=== PATIENT | female | born 1965 | race Caucasian/White ===

== ENCOUNTER → 2017-06-13 07:21 | Outpatient (CLI) | payer MEDICAID ==
[2014-12-18 18:40] VITALS: BMI 38.3
[~2017-06-13 07:21] MED LIST: COZAAR100 MG PO; DOXYCYCLINE HY100 M2 PO; FAMVIR500 MG PO; FERREX 150 PLUS1 CAP PO; FIORICET-COD 51 EACH PO; HYDROCHLOROTHIA25 MG PO; HYDROMET PO; IPRAT-ALBUT 0.5-3 ML UPD; LEVAQUIN500 MG PO; MUCINEX DM ER1 EAC1 PO; PROAIR HFA8.5 GM INH; SINGULAIR10 MG PO; TESSALON PERLE100 MG PO; XANAX0.5 MG PO; ZOLOFT100 MG PO; ZOVIRAX 5% CREAM5 GM TOPICAL
== END ==
LOC: D.MRI 07:21
DX: R93.8 Abnormal findings on diagnostic imaging of other specified body structures (principal); K92.1 Melena; K64.9 Unspecified hemorrhoids

== ENCOUNTER → 2017-12-25 18:13 | Outpatient (CLI) | payer MEDICAID, BC ==
[2014-12-18 18:40] VITALS: BMI 38.3
== END | disposition home or self-care (01) ==
LOC: D.MAMMO 08:15
DX: Z12.31 Encounter for screening mammogram for malignant neoplasm of breast (principal)

== ENCOUNTER → 2019-04-04 11:37 | Outpatient (CLI) | payer BC, MEDICAID ==
[2014-12-18 18:40] VITALS: BMI 38.3
== END | disposition home or self-care (01) ==
LOC: D.US 11:37
PROVIDERS: ATTEND Surgery
DX: I83.90 Asymptomatic varicose veins of unspecified lower extremity (principal)

== ENCOUNTER 2019-05-16 09:30 | Day surgery (SDC) | payer BC, MEDICAID ==
[2019-05-15 13:57] LABS: HEMATOCRIT 40.7 % (36.0-48.0); HEMOGLOBIN 13.4 g/dL (12-16); MCHC 32.9 g/dL (31.0-37.0); MCV 91.1 fL (80.0-100.0); MEAN PLATELET VOLUME 10.3 fL (7.4-10.4); RBC 4.47 10x6/uL (4.00-5.40); WBC 9.6 10x3/uL (4.8-10.8)
[~2019-05-16] VITALS: Ht 170.2 cm; Wt 122.5 kg
[~2019-05-16 09:30] MED LIST changes: +ESTRACE1 MG PO; +PEPCID40 MG PO; +POT CHLORIDE TAB 10M PO; +PROMETRIUM200 MG PO; +SINEQUAN25 MG; +TOPAMAX100 MG PO
[2019-05-16] MEDS ORDERED: STELARA (10:25)
[2019-05-16 10:31] VITALS: BP 107/67; Ht 170.2 cm; Wt 122.5 kg
--- NOTE | 2019-05-16 13:47 | NUR ---
PILLOWS,AND AX ROLLS USED FOR PRONE POSITION DURING 2ND PART OF CASE.
--- NOTE | 2019-05-16 18:20 | NUR ---
PATIENT AMBULATES TO BATHROOM AND VOIDS LARGE AMOUNT IN TOILET, NO NEW DRAINAGE NOTED TO LEG DRESSINGS. PATIENT DRESSING IN PERSONAL CLOTHING. RIGHT HAND PIV DC'D WITH TIP INTACT 1829 DISCHARGED HOME VIA WHEELCHAIR TO PRIVATE VEHICLE WITH DAUGHTER
--- NOTE | 2019-06-12 16:24 | OP ---
PATIENT NAME: AVERY DE LA VEGA MEDICAL RECORD: [id number] :67 LOCATION:[facility] ADMISSION DATE: SURGEON: GEOVANNY SHAH MD DATE OF OPERATION: 05/16/2019 PREOPERATIVE DIAGNOSES: 1. Symptomatic bilateral lower extremity varicosities, extensive. 2. Pathologic venous reflux in the bilateral greater saphenous veins and bilateral short saphenous veins. POSTOPERATIVE DIAGNOSES: 1. Symptomatic bilateral lower extremity varicosities, extensive. 2. Pathologic venous reflux in the bilateral greater saphenous veins and bilateral short saphenous veins. 3. Relatively narrow short saphenous veins, which I did not think would accommodate the radiofrequency catheter. PROCEDURES: 1. VNUS radiofrequency ablation of the bilateral greater saphenous veins. The length treated on the right was 34 cm and the length treated on the left was 40 cm. 2. Foamed sclerotherapy of the bilateral lesser saphenous veins. 3. Avulsion phlebectomies of the bilateral lower extremities times 60. SURGEON: Geovanny Shah MD MICROBIOLOGY LAB ANALYST: None. BLOOD LOSS: Please see the anesthesia sheet. COMPLICATIONS: None. The risks, possible complications, and alternatives to the procedure were explained to the patient. She elects to proceed. The patient was seen in the holding area. In the presence of a female nurse with her standing, I marked the varicose veins. She confirmed that all the varicose veins had indeed been marked. I specifically discussed with her the risk of bleeding requiring an emergency reoperation, infection, recurrence or persistence of varicosities as well as numbness, paresthesias, and hyperesthesia. OPERATIVE COURSE: The patient was conveyed to the operating room electively on 05/16/2019. General anesthesia was induced by the anesthesia staff. The patient was placed in the supine position. She was then placed in the Trendelenburg position. Under ultrasonographic guidance, I percutaneously accessed the right greater saphenous vein in an antegrade fashion. A dilator sheath was then advanced. The sheath was sutured in place. Through the sheath, I advanced a radiofrequency catheter. It was advanced to the saphenofemoral junction. Under ultrasound, I then backed the tip of the catheter into the greater saphenous vein about 2 cm. The patient was then positioned in the Trendelenburg position. Under ultrasonographic guidance, I injected a tumescent crystalloid solution OPERATIVE REPORT [id number] AVERY DE LA VEGA into the perivenular tissues in order to provide a heat sink so that the surrounding structures were not be damaged by the thermal radiofrequency catheter. I confirmed under ultrasound that the tip of the catheter had not moved. I then activated the catheter twice. With each 7 cm pullback, it was activated again. The catheter was then removed. The patient was positioned in the reverse Trendelenburg position. Through the sheath, I injected a foamed sclerosant (Asclera). She was kept in the reverse Trendelenburg position for about 5 minutes. The sheath was removed. The sheath exit site was closed with a single horizontal mattress 4-0 Vicryl Rapide suture. I then went around to the left side. Under ultrasonographic guidance, I percutaneously accessed the left greater saphenous vein at the ankle. A guidewire passed easily. Over the guidewire, a dilator sheath was then advanced. I advanced the radiofrequency catheter. I advanced it to the saphenofemoral junction. I then backed it off about 2 cm into the greater saphenous vein. The patient was then positioned in the Trendelenburg position. Under ultrasonographic guidance, I percutaneously injected a crystalloid solution into the perivenular tissues in order to act as a heat sink so that the surrounding tissues would not be damaged by the thermal effect of the radiofrequency catheter. I checked under ultrasound and there had been no movement of the tip of the catheter. I activated the catheter energy twice. With each 7 cm pullback, I activated the radiofrequency catheter. The catheter was then removed. The length of the greater saphenous vein, which was treated are listed above. The patient was then positioned in the reverse Trendelenburg position. I then injected a foamed sclerosis up through the sheath. The sheath was then removed. The sheath exit site was closed with a single horizontal mattress 4-0 Vicryl Rapide suture. Small skin nicks were accomplished over the varicose veins, which had been clearly marked. I then performed avulsion phlebectomies of the varicose veins. At no time was there any apparent nervous injury. The patient was then positioned in the prone position. I examined both lesser saphenous veins. I felt that they were too small to admit a radiofrequency catheter and the sheath. Instead, I percutaneously accessed both lesser saphenous veins and with the patient in the reverse Trendelenburg position, I treated these lesser saphenous veins with a foam sclerosant. Small skin nicks were accomplished over the varicose veins. The varicose veins were then removed utilizing a phlebectomy hook. At no time was there any apparent nerve injury. The patient was then positioned supine. Both lower extremities were wrapped with gauze dressings and then with Coban. She was then extubated and conveyed to the post-anesthesia care unit. I will see her in my office in 3 days to have the dressings removed. She is being dismissed home on a narcotic analgesic. TRANSINT:[id number] Voice Confirmation ID: [id number] DOCUMENT ID: [id number] OPERATIVE REPORT [id number] AVERY DE LA VEGA, GEOVANNY MUÑOZ at 1624 CC: [id number] DICTATION DATE: 06/11/19 1036 ASTHMA EDUCATOR: 06/11/19 1402 [facility] 05/16/19 [facility] [address] [place] [address]
== END 2019-05-16 18:30 | disposition home or self-care (01) ==
LOC: D.OPS 09:30 → D.PAN 12:15 → D.OPS 12:15
PROVIDERS: Anesthesiology; ATTEND Surgery
DX: I87.2 Venous insufficiency (chronic) (peripheral) (principal)